=== PATIENT | male | born 1980 | race Two or more races ===

== ENCOUNTER 2021-01-08 18:28 | Emergency (ER) | payer BC ==
[~2021-01-08] VITALS: Ht 170.2 cm; Wt 79.4 kg
[2021-01-08] MEDS ORDERED: Ketorolac 30mg Inj IV ONE (18:45)
[2021-01-08] MEDS ORDERED: Acetaminophen 500mg (ES) tab ORAL ONE (18:45)
--- NOTE | 2021-01-08 18:56 | Emergency Room Report ---
History of Present Illness General Chief Complaint: Fever Source: Patient Present Illness HPI Patient is a 40-year-old male denies any significant past medical history who presents to the ER complaining of flulike symptoms for the past 2 days. Patient complains of fever, shortness of breath and cough. He complains of generalized body aches. Patient states he has tried taking Tylenol and Motrin for his feve r. Last antipyretic was 4 to 6 hours ago. He denies any smoking. He denies any abdominal pain. He complains of one episode of nonbloody nonbilious vomitus that has resolved. He denies any diarrhea. Allergies: Coded Allergies: No Known Allergies (Unverified , 01/08/21) COVID-19 Screening Contact w/high risk pt: No Experienced COVID-19 symptoms?: Yes COVID-19 Testing performed TONGER: No Patient History Reviewed Nursing Documentation: PMH: Agreed; PSxH: Agreed Nursing Documentation-[facility] Past Medical History: No Stated History Review of Systems All Other Systems: negative except mentioned in HPI Medical Decision Making Diagnostic Impression: Primary Impression: Fever Additional Impressions: Viral syndrome Microscopic hematuria Transaminitis ER Course Patient presented febrile and tachycardic. Patient has symptoms consistent with COVID-19. Patient's antigen test was negative but PCR has been sent and is pending. Chest x-ray demonstrates no acute cardiopulmonary pathology. Tachycardia improved after Tylenol and IV Toradol were given for fever control. Patient's labs also demonstrate mild transaminitis and microscopic hematuria. CTA chest was performed to rule out pulmonary embolism as D-dimer was elevated. CTA demonstrates hypoaeration but no evidence for PE or infiltrate. Patient is being discharged home on Motrin and Tylenol. He has been advised to rest. He also advised him to take zinc, vitamin C, vitamin D and melatonin at night. He has been given a prescription for Decadron and albuterol in case of hypoxia and worsening of symptoms. Patient does have a pulse oximeter at home. Patient given strict return precautions. Laboratory Tests Test 01/08/21 18:45 01/08/21 20:00 White Blood Count 8.0 K/UL (4.8-10.8) Red Blood Count 5.52 M/UL (4.70-6.10) Hemoglobin 16.0 G/DL (14.2-18.0) Hematocrit 46.3 % (42.0-52.0) Mean Corpuscular Volume 84 FL (80-99) Mean Corpuscular Hemoglobin 28.9 PG (27.0-31.0) Mean Corpuscular Hemoglobin Concent 34.5 G/DL (32.0-36.0) Red Cell Distribution Width 13.6 % (11.6-14.8) Platelet Count 155 K/UL (150-450) Mean Platelet Volume 7.3 FL (6.5-10.1) Neutrophils (%) (Auto) 77.9 % (45.0-75.0) H Lymphocytes (%) (Auto) 9.0 % (20.0-45.0) L Monocytes (%) (Auto) 11.6 % (1.0-10.0) H Eosinophils (%) (Auto) 0.8 % (0.0-3.0) Basophils (%) (Auto) 0.7 % (0.0-2.0) Prothrombin Time 12.3 SEC (9.30-11.50) H Prothrombin Time INR 1.1 (0.9-1.1) Activated Partial Thromboplast Time 30 SEC (23-33) D-Dimer 2.03 mg/L FEU (0.00-0.49) H Sodium Level 141 MMOL/L (136-145) Potassium Level 3.3 MMOL/L (3.5-5.1) L Chloride Level 102 MMOL/L (98-107) Carbon Dioxide Level 29 MMOL/L (21-32) Anion Gap 10 mmol/L (5-15) Blood Urea Nitrogen 14 mg/dL (7-18) Creatinine 1.2 MG/DL (0.55-1.30) Estimated Glomerular Filtration Rate > 60 mL/min (>60) Glucose Level 104 MG/DL (74-106) Lactic Acid Level 1.80 mmol/L (0.4-2.0) Calcium Level 8.6 MG/DL (8.5-10.1) Phosphorus Level 2.1 MG/DL (2.5-4.9) L Magnesium Level 2.5 MG/DL (1.8-2.4) H Ferritin 946 NG/ML (8-388) H Total Bilirubin 1.5 MG/DL (0.2-1.0) H Direct Bilirubin 0.5 MG/DL (0.0-0.3) H Aspartate Amino Transferase (AST) 76 U/L (15-37) H Alanine Aminotransferase (ALT) 153 U/L (12-78) H Alkaline Phosphatase 139 U/L (46-116) H Lactate Dehydrogenase 185 U/L (81-234) Total Creatine Kinase 95 U/L (26-308) Troponin I 0.000 ng/mL (0.000-0.056) C-Reactive Protein, Quantitative 15.3 mg/dL (0.00-0.90) H Pro-B-Type Natriuretic Peptide 32 pg/mL (0-125) Total Protein 8.1 G/DL (6.4-8.2) Albumin 3.7 G/DL (3.4-5.0) Globulin 4.4 g/dL Albumin/Globulin Ratio 0.8 (1.0-2.7) L Triglycerides Level 71 MG/DL (30-150) Cholesterol Level 155 MG/DL (< 200) LDL Cholesterol 75 mg/dL (<100) HDL Cholesterol 67 MG/DL (40-60) H Cholesterol/HDL Ratio 2.3 (3.3-4.4) L Urine Color Yellow Urine Appearance Slightly cloudy Urine pH 7 (4.5-8.0) Urine Specific [place] 1.015 (1.005-1.035) Urine Protein 2+ (NEGATIVE) H Urine Glucose (UA) Negative (NEGATIVE) Urine Ketones Negative (NEGATIVE) Urine Blood 4+ (NEGATIVE) H Urine Nitrite Negative (NEGATIVE) Urine Bilirubin Negative (NEGATIVE) Urine Urobilinogen 4 MG/DL (0.0-1.0) H Urine Leukocyte Esterase Negative (NEGATIVE) Urine RBC 20-30 /HPF (0 - 0) H Urine WBC 0-2 /HPF (0 - 0) Urine Squamous Epithelial Cells None /LPF (NONE/OCC) Urine Bacteria Few /HPF (NONE) Microbiology Date/Time Source Procedure Growth Status 01/08/21 19:04 Nasopharynx SARS-CoV-2 Antigen (Rapid)([facility]) - Final Complete EKG Diagnostic Results Troponin ordered: Yes When was troponin ordered?: Jan 08, 2021 EKG Time: 18:40 EP Interpretation: Marysol Melendez MD Rate: tachycardiac - 123 bpm Rhythm: other - Sinus tachycardia ST Segments: no acute changes ASA given to the pt in ED: No Rhythm Strip Diag. Results Rhythm Strip Time: 18:57 EP Interpretation: yes - Marysol Melendez MD Rate: 121 bpm Rhythm: no PVC's, no ectopy, other - Sinus tachycardia Chest X-Ray Diagnostic Results Chest X-Ray Diagnostic Results : Chest X-Ray Ordered: Yes # of Views/Limited/Complete: 1 View Indication: Shortness of Breath EP Interpretation: Yes Interpretation: no consolidation, no effusion, no pneumothorax, no acute cardiopulmonary disease Impression: No acute disease Electronically Signed by: Marysol Melendez MD Disposition: HOME, SELF-CARE Condition: Stable Scripts Dexamethasone* (DECADRON*) 2 Mg Tablet 10 MG PO DAILY for 3 Days, TAB Prov: Marysol Melendez M.D. 01/08/21 Albuterol Sulfate* (PROAIR HFA*) 8.5 Gm Hfa.aer.ad 2 PUFFS INH Q6H, #8.5 GM 0 Refills Prov: Marysol Melendez M.D. 01/08/21 Acetaminophen* (TYLENOL EXTRA STRENGTH*) 500 Mg Tablet 1000 MG ORAL Q6H, #30 TAB Prov: Marysol Melendez M.D. 01/08/21 Ibuprofen* (MOTRIN*) 600 Mg Tablet 600 MG ORAL FOUR TIMES A DAY, #30 TAB 0 Refills Prov: Marysol Melendez M.D. 01/08/21 Referrals: NOT CHOSEN IPA/,REFERRING (PCP) Additional Instructions: The patient was provided with discharge instructions, notified to follow-up with a primary care doctor and or specialist in the next 24-48 hours, and to return to the ED if they have worsening of their symptoms. Please note that this report is being documented using [employer] technology. This can lead to erroneous entry secondary to incorrect interpretation by the dictating instrument. Marysol Melendez M.D. Jan 08, 2021 18:56
[2021-01-08 19:00] VITALS: BP 129/86
[2021-01-08 19:06] LABS: BASOPHILS % (AUTO) 0.7 % (0.0-2.0); EOSINOPHILS % (AUTO) 0.8 % (0.0-3.0); HEMATOCRIT 46.3 % (42.0-52.0); MEAN CORPUSCULAR VOLUME 84 FL (80-99); MONOCYTES % (AUTO) 11.6 % (1.0-10.0); NEUTROPHILS % (AUTO) 77.9 % (45.0-75.0); PLATELET COUNT 155 K/UL (150-450); RED BLOOD COUNT 5.52 M/UL (4.70-6.10); RED CELL DISTRIBUTION WIDTH 13.6 % (11.6-14.8)
[2021-01-08 19:19] LABS: INR 1.1 (0.9-1.1)
[2021-01-08 19:27] LABS: ANION GAP 10 mmol/L (5-15); BLOOD UREA NITROGEN 14 mg/dL (7-18); CALCIUM 8.6 MG/DL (8.5-10.1); CARBON DIOXIDE 29 MMOL/L (21-32); CHLORIDE 102 MMOL/L (98-107); CREATININE 1.2 MG/DL (0.55-1.30); POTASSIUM 3.3 MMOL/L (3.5-5.1); SODIUM 141 MMOL/L (136-145)
--- NOTE | 2021-01-08 19:30 | NUR ---
ED Nurse Note: Recieved report from am nurse to resume care, pt in bed awake, alert and oriented x 4, pt here for fever of over 103, was medicated and on cardiac monitoring, pt denies chest pain, sob but does luke chronic leg pain at 7/10, declines needing pain meds, pt has patent IV site in right ac area, fluids completed, pt remains slightly tachy on monitor, will resume care as ordered and closely monitor for any acute chagnges or distress. pt is in isolation room on Covid precautions until test results completed.
[2021-01-08 19:41] LABS: ALANINE AMINOTRANSFERASE 153 U/L (12-78); ALBUMIN 3.7 G/DL (3.4-5.0); ALBUMIN/GLOBULIN RATIO 0.8 (1.0-2.7); ALKALINE PHOSPHATASE 139 U/L (46-116); ASPARTATE AMINO TRANSFERASE 76 U/L (15-37); BILIRUBIN,TOTAL 1.5 MG/DL (0.2-1.0); CHOLESTEROL 155 MG/DL (< 200); CREATINE KINASE 95 U/L (26-308); FERRITIN 946 NG/ML (8-388); HDL CHOLESTEROL 67 MG/DL (40-60); LACTATE DEHYDROGENASE 185 U/L (81-234); PHOSPHORUS 2.1 MG/DL (2.5-4.9); TRIGLYCERIDES 71 MG/DL (30-150)
[2021-01-08 19:44] LABS: BILIRUBIN,DIRECT 0.5 MG/DL (0.0-0.3)
[2021-01-08 20:00] VITALS: BP 115/74
[2021-01-08] MEDS ORDERED: Omnipaque 350 100ml vial INJ PRN (20:00)
--- NOTE | 2021-01-08 20:20 | NUR ---
ED Nurse Note: Pt being taken to imaging for CTA via wheelchair, no dizziness upon standing or sob, denies cp, IV site patent, will resume care when tp returns to department.
[2021-01-08 20:24] LABS: APPEARANCE,URINE SLIGHTLY CLOUDY; BILIRUBIN, URINE NEGATIVE (NEGATIVE); GLUCOSE, URINE (UA) NEGATIVE (NEGATIVE); KETONES,URINE NEGATIVE (NEGATIVE); LEUKOCYTE ESTERASE ,URINE NEGATIVE (NEGATIVE); NITRITE,URINE NEGATIVE (NEGATIVE); PH,URINE 7 (4.5-8.0); PROTEIN,URINE 2+ (NEGATIVE); UROBILINOGEN,URINE 4 MG/DL (0.0-1.0)
[2021-01-08 20:27] LABS: COLOR,URINE YELLOW
--- NOTE | 2021-01-08 20:43 | Diagnostic Imaging Report ---
EXAM: CT Angiography Chest With Intravenous Contrast CLINICAL HISTORY: SOB TECHNIQUE: Axial computed tomographic angiography images of the chest with intravenous contrast. CTDI is 43 mGy and DLP is 200 mGy-cm. One or more of the following dose reduction techniques were used: automated exposure control, adjustment of the mA and/or kV according to patient size, use of iterative reconstruction technique. MIP reconstructed images were created and reviewed. COMPARISON: No previous studies. FINDINGS: Pulmonary arteries: No central or peripheral pulmonary emboli detected. Aorta: Thoracic aortic arch is unremarkable. No thoracic aortic aneurysm. Lungs: Minimal subsegmental atelectasis posteriorly in the mid lower lung zones. Airways patent. No mass. Pleural space: Unremarkable. No significant effusion. No pneumothorax. Heart: Heart is normal in size. No significant pericardial effusion. No evidence of RV dysfunction. Thyroid: Thyroid gland is unremarkable. Bones/joints: Moderate degenerative disc disease of the thoracic spine and dextroscoliosis. No acute fracture. No dislocation. Soft tissues: Unremarkable. Lymph nodes: Unremarkable. No enlarged lymph nodes. Liver: Fatty liver. IMPRESSION: 1. No central or peripheral pulmonary emboli. 2. Fatty liver. 3. Hypoaeration.
[2021-01-08] MEDS ORDERED: IBUPROFEN600 M1 ORAL (20:47)
[2021-01-08] MEDS ORDERED: DEXAMETHASONE2 MG PO (20:47)
[2021-01-08] MEDS ORDERED: ACETAMINOPHEN500 MG ORAL (20:47)
[2021-01-08] MEDS ORDERED: PROAIR HFA8.5 GM INH (20:47)
[2021-01-08 21:05] VITALS: BP 112/76
--- NOTE | 2021-01-08 21:10 | NUR ---
ER DISCHARGE NOTE: Patient is cleared to be discharged per ERMD, pt is aox4, on room air, with stable vital signs. pt was given dc and prescription instructions, pt was able to verbalize understanding, pt id band and iv site removed without complications. pt is able to ambulate with steady gait. pt took all belongings.
[2021-01-08 21:15] VITALS: BP 115/74
--- NOTE | 2021-01-09 10:16 | Diagnostic Imaging Report ---
Indication: Reason For Exam: SOB Technique: XRAY Chest 1v Comparison: None. Findings: The cardiomediastinal silhouette is normal. The lungs are clear. There is no evidence of pleural fluid. The bones are unremarkable. Impression: Normal chest.
--- NOTE | 2021-01-11 14:04 | Cardiology Report ---
APPROVED REPORT EKG Measurement Heart [id number] <Conclusion> Sinus tachycardia Low voltage QRS Possible Inferior infarct, age undetermined Abnormal ECG
== END 2021-01-08 21:15 | disposition home or self-care (01) ==
LOC: EMR 18:48
DX: B34.9 Viral infection, unspecified (principal); R31.29 Other microscopic hematuria; R74.01 Elevation of levels of liver transaminase levels; R00.0 Tachycardia, unspecified
CPT/HCPCS: 36415; 71045; 71275; 80053; 80061; 81003; 82248; 82550; 82728; 83605; 83615; 83735; 83880; 84100; 84484; 85025; 85379; 85610; 85730; 86140; 87040; 93005; 96361; 96374; 99284; J1885; J7030; Q9967; U0004; J8499